=== PATIENT | male | born 1965 | race Caucasian/White ===

== ENCOUNTER 2019-04-29 14:52 | Inpatient (IN) | payer MEDICARE, MEDICAID ==
[~2019-04-29] VITALS: Ht 165.1 cm; Wt 69.1 kg
[2019-04-29 00:25] VITALS: BP 153/96
[~2019-04-29 14:52] MED LIST: PREDNISONE
[2019-04-29] MEDS ORDERED: SODIUM CHLORIDE 0.9% 1,000 ML IV ONE (16:12)
[2019-04-29 17:06] LABS: BASOPHILS % 0.7 % (0.0-2.0); EOSINOPHILS % 0.5 % (0.0-5.0); HEMATOCRIT. 24.6 % (42.0-52.0); HEMOGLOBIN. 8.1 g/dL (14.0-18.0); MEAN CORPUSCULAR HEMOGLOBIN 24.3 pg (28.0-32.0); MEAN CORPUSCULAR VOLUME 73.8 fL (80.0-94.0); MONOCYTES % 5.5 % (2.0-8.0); NEUTROPHILS % 69.3 % (40.0-76.0); PLATELET 265 x1000/uL (130-400); RED BLOOD CELL COUNT 3.33 mill/uL (4.7-6.1); RED CELL DISTRIBUTION WIDTH 22.8 % (11.6-14.6)
[2019-04-29 17:13] LABS: CHLORIDE 107 mEq/L (98-107)
[2019-04-29 17:24] LABS: PARTIAL THROMBOPLASTIN TIME 25.1 sec (23.4-31.0); PROTHROMBIN TIME 10.6 sec (9.6-11.0)
[2019-04-29] MEDS ORDERED: ASPIRIN 81MG TABLET PO ONE (17:45)
[2019-04-29 18:49] LABS: CLARITY URINE CLEAR (CLEAR); COLOR URINE YELLOW (YELLOW); KETONES URINE NEGATIVE (NEGATIVE); LEUKOCYTE ESTERASE URINE NEGATIVE (NEGATIVE); NITRITE URINE NEGATIVE (NEGATIVE); OCCULT BLOOD URINE NEGATIVE (NEGATIVE); PROTEIN URINE NEGATIVE (NEGATIVE); SPECIFIC GRAVITY URINE 1.008 (1.005-1.030); UROBILINOGEN URINE 0.2 E.U./dL (0.2-1.0)
[2019-04-29 19:04] LABS: PLATELET ESTIMATE NORMAL
[2019-04-29 20:54] VITALS: BP 117/83
[2019-04-29] MEDS ORDERED: ENCORAFENIB 450 MG PO SCH (23:15)
[2019-04-29] MEDS ORDERED: ENCO75CA PO (23:24)
[2019-04-29] MEDS ORDERED: BINI15TA PO (23:24)
[2019-04-29] MEDS ORDERED: FERR-71 MT (23:26)
[2019-04-30] VITALS (7 sets, daily range): BP systolic 92–130; BP diastolic 53–77
[2019-04-30] MEDS ORDERED: ONDANSETRON HCL 4MG/2ML INJ IV PRN (04:00)
[2019-04-30] MEDS: SODIUM CHLORIDE 0.9% 1,000 ML IV SCH ×2 (04:07→21:41)
[2019-04-30] MEDS: ACETAMINOPHEN 325MG TABLET PO PRN ×2 (04:28→08:37)
[2019-04-30] MEDS ORDERED: VANCOMYCIN 1500MG in DEXTROSE 5% WATER 250ML IV NR (08:00)
[2019-04-30] MEDS: ENCORAFENIB 75 MG PO SCH (08:36)
[2019-04-30] MEDS: BINIMETINIB 15 MG PO SCH ×2 (08:36→21:42)
[2019-04-30] MEDS: FERROUS SULFATE 325MG TABLET PO SCH ×2 (08:36→16:58)
[2019-04-30] MEDS: PIPERACILLIN/TAZOBACTAM 3.375 G in DEXT 5% WATER 100 ML IV SCH ×3 (08:37→21:41)
[2019-04-30] MEDS ORDERED: BINIMETINIB 45 MG PO SCH (09:00)
[2019-04-30] MEDS ORDERED: PIPERACILLIN/TAZOBACTAM 3.375GM/50ML PREMIX IV ONE (12:00)
[2019-04-30 16:55] LABS: TOTAL IRON BINDING CAPACITY 289 ug/dL (250-450)
[2019-04-30] MEDS: ACETAMINOPHEN 650MG/20.3ML UDC PO PRN (16:59)
[2019-04-30] MEDS: VANCOMYCIN 1250MG in DEXTROSE 5% WATER 250ML IV SCH (21:41)
[2019-05-01] VITALS (9 sets, daily range): BP systolic 93–116; BP diastolic 54–69
[2019-05-01] MEDS: PIPERACILLIN/TAZOBACTAM 3.375 G in DEXT 5% WATER 100 ML IV SCH ×3 (01:46→14:49)
[2019-05-01 06:35] LABS: CHLORIDE 107 mEq/L (98-107)
[2019-05-01 06:45] LABS: BASOPHILS % 0.4 % (0.0-2.0); EOSINOPHILS % 0.3 % (0.0-5.0); HEMATOCRIT. 22.4 % (42.0-52.0); HEMOGLOBIN. 7.4 g/dL (14.0-18.0); LYMPHOCYTES % 20.3 % (20.0-50.0); MEAN CORPUSCULAR HEMOGLOBIN 24.3 pg (28.0-32.0); MEAN CORPUSCULAR VOLUME 73.9 fL (80.0-94.0); MEAN PLATELET VOLUME 7.2 fl (7.4-10.4); MONOCYTES % 5.1 % (2.0-8.0); NEUTROPHILS % 73.9 % (40.0-76.0); PLATELET 241 x1000/uL (130-400); RED BLOOD CELL COUNT 3.03 mill/uL (4.7-6.1); RED CELL DISTRIBUTION WIDTH 22.5 % (11.6-14.6)
[2019-05-01 06:49] LABS: T4 FREE 0.77 ng/dL (0.76-1.46)
[2019-05-01] MEDS: SODIUM HYPOCHLORITE 0.125% 473ML SOLUTION TOP SCH ×2 (09:00→17:49)
[2019-05-01] MEDS: FERROUS SULFATE 325MG TABLET PO SCH ×2 (09:00→17:48)
[2019-05-01] MEDS: ENCORAFENIB 75 MG PO SCH ×2 (09:02→21:28)
[2019-05-01] MEDS: BINIMETINIB 15 MG PO SCH ×2 (09:02→21:28)
[2019-05-01] MEDS: SODIUM CHLORIDE 0.9% 1,000 ML IV SCH ×3 (10:00→13:14)
[2019-05-01] MEDS: VANCOMYCIN 1250MG in DEXTROSE 5% WATER 250ML IV SCH (10:50)
[2019-05-01] MEDS ORDERED: DOCUSATE SODIUM 100MG CAPSULE PO SCH (17:00)
[2019-05-01] MEDS: ACETAMINOPHEN 650MG/20.3ML UDC PO PRN (21:27)
[2019-05-05 06:07] LABS: METANEPHRINE 24 HR UR 18 ug/24 hr (45-290); METANEPHRINE UR 15 ug/L (Undefined); NORMETANEPHRINE 24 HR UR 102 ug/24 hr (82-500); NORMETANEPHRINE UR 85 ug/L (Undefined)
[2019-05-09 08:07] LABS: DOPAMINE URINE 446 ug/L (Undefined); DOPAMINE URINE 24 HR 1427 ug/24 hr (0-510); EPINEPHRINE URINE <1 ug/L (Undefined); EPINEPHRINE URINE 24 HR <3 ug/24 hr (0-20); NOREPINEPHRINE UR 24 HR 42 ug/24 hr (0-135); NOREPINEPHRINE URINE 13 ug/L (Undefined)
== END 2019-05-01 23:15 | disposition home or self-care (01) | DRG 871 ==
LOC: ER 18:22 → 6WST 18:50 → ENRESERV 19:50
PROVIDERS: ADMIT Internal Medicine; ATTEND Internal Medicine
DX: A41.9 Sepsis, unspecified organism (principal); E43 Unspecified severe protein-calorie malnutrition; C78.00 Secondary malignant neoplasm of unspecified lung; C78.7 Secondary malignant neoplasm of liver and intrahepatic bile duct; E78.5 Hyperlipidemia, unspecified; C43.9 Malignant melanoma of skin, unspecified; E27.9 Disorder of adrenal gland, unspecified; G90.8 Other disorders of autonomic nervous system; D50.9 Iron deficiency anemia, unspecified; E05.90 Thyrotoxicosis, unspecified without thyrotoxic crisis or storm; R35.1 Nocturia; I10 Essential (primary) hypertension; K59.00 Constipation, unspecified; Z83.3 Family history of diabetes mellitus; Z85.820 Personal history of malignant melanoma of skin; Z87.891 Personal history of nicotine dependence; Z92.3 Personal history of irradiation; Z98.42 Cataract extraction status, left eye; Z98.41 Cataract extraction status, right eye; Z68.25 Body mass index [BMI] 25.0-25.9, adult
CPT/HCPCS: 36415; 71045; 80048; 81003; 82024; 82384; 82533; 82728; 83540; 83550; 83880; 84134; 84439; 84443; 84484; 93005; 93306; 93880; 93970; 97162; 99285; C1893; J2405; J2543; J3370; J7030; J7060

== ENCOUNTER 2019-05-18 00:24 | Emergency (ER) | payer MEDICARE, MEDICAID ==
[~2019-05-18] VITALS: Ht 175.3 cm; Wt 79.0 kg
[~2019-05-18 00:24] MED LIST changes: +BINI15TA PO; +ENCO75CA PO; +FERR-71 MT; -PREDNISONE
[2019-05-18] MEDS ORDERED: PIPERACILLIN/TAZ 3.375G PREMIX 50 ML IV ONE (00:45)
[2019-05-18] MEDS ORDERED: SODIUM CHLORIDE 0.9% 1000ML BAG (SEPSIS BOLUS) IV ONE (00:45)
[2019-05-18 01:03] LABS: HEMATOCRIT. 28.9 % (42.0-52.0); HEMOGLOBIN. 9.3 g/dL (14.0-18.0); MEAN CORPUSCULAR HEMOGLOBIN 24.4 pg (28.0-32.0); MEAN CORPUSCULAR VOLUME 75.7 fL (80.0-94.0); MEAN PLATELET VOLUME 6.7 fl (7.4-10.4); PLATELET 263 x1000/uL (130-400); RED BLOOD CELL COUNT 3.82 mill/uL (4.7-6.1); RED CELL DISTRIBUTION WIDTH 26.6 % (11.6-14.6)
[2019-05-18 01:08] LABS: CHLORIDE 102 mEq/L (98-107)
[2019-05-18 01:10] LABS: INR 1.1; PROTHROMBIN TIME 11.2 sec (9.6-11.0)
[2019-05-18 01:38] LABS: PLATELET ESTIMATE NORMAL
[2019-05-18 07:17] VITALS: BP 97/59
== END 2019-05-18 07:19 | disposition home or self-care (01) ==
LOC: ER 00:53 → EDUNIT# 00:53 → ER 07:19 → CANBEDREQ 08:10
DX: R65.10 Systemic inflammatory response syndrome (SIRS) of non-infectious origin without acute organ dysfunction (principal); J06.9 Acute upper respiratory infection, unspecified; R00.0 Tachycardia, unspecified; R61 Generalized hyperhidrosis; Z79.899 Other long term (current) drug therapy; Z85.9 Personal history of malignant neoplasm, unspecified
CPT/HCPCS: 36415; 71045; 80053; 83605; 84145; 84484; 85025; 85610; 87040; 87804; 93005; 96365; 96366; 99291; J2543; J7030

== ENCOUNTER 2020-02-25 12:41 | Inpatient (IN) | payer MEDICARE, MEDICAID ==
[~2020-02-25] VITALS: Ht 172.7 cm; Wt 70.8 kg
[2020-02-25] MEDS ORDERED: MORPHINE SULFATE 4 MG/ML CPJ (NOT FOR IM USE) IV STA (13:00)
[2020-02-25] MEDS ORDERED: SODIUM CHLORIDE 0.9% 1,000 ML IV ONE (13:00)
[2020-02-25] MEDS ORDERED: ONDANSETRON HCL 4MG/2ML INJ IV STA (13:00)
[2020-02-25 13:48] LABS: BASOPHILS % 0.4 % (0.0-2.0); EOSINOPHILS % 0.4 % (0.0-5.0); HEMATOCRIT. 28.4 % (42.0-52.0); HEMOGLOBIN. 9.3 g/dL (14.0-18.0); LYMPHOCYTES % 12.4 % (20.0-50.0); MEAN CORPUSCULAR HEMOGLOBIN 28.4 pg (28.0-32.0); MEAN CORPUSCULAR VOLUME 86.5 fL (80.0-94.0); MEAN PLATELET VOLUME 6.4 fl (7.4-10.4); MONOCYTES % 11.6 % (2.0-8.0); NEUTROPHILS % 75.2 % (40.0-76.0); PLATELET 288 x1000/uL (130-400); RED BLOOD CELL COUNT 3.29 mill/uL (4.7-6.1); RED CELL DISTRIBUTION WIDTH 16.1 % (11.6-14.6)
[2020-02-25 13:52] LABS: CHLORIDE 101 mEq/L (98-107)
[2020-02-25 13:56] LABS: INR 1.1; PROTHROMBIN TIME 11.4 sec (9.6-11.0)
[2020-02-25] MEDS ORDERED: PIPERACILLIN SODIUM/TAZOBACTAM 4.5 G in DEXT 5% WATER 100 ML IV SCH (15:45)
[2020-02-25 15:59] LABS: CLARITY URINE CLEAR (CLEAR); COLOR URINE YELLOW (YELLOW); KETONES URINE NEGATIVE (NEGATIVE); LEUKOCYTE ESTERASE URINE NEGATIVE (NEGATIVE); NITRITE URINE NEGATIVE (NEGATIVE); OCCULT BLOOD URINE NEGATIVE (NEGATIVE); PROTEIN URINE TRACE (NEGATIVE)
[2020-02-26] VITALS (7 sets, daily range): BP systolic 100–127; BP diastolic 68–80
[2020-02-26] MEDS ORDERED: ONDANSETRON HCL 4MG/2ML INJ IV PRN (00:45)
[2020-02-26] MEDS: SODIUM CHLORIDE 0.9% 1,000 ML IV SCH ×2 (02:47→15:35)
[2020-02-26 05:57] LABS: BASOPHILS % 0.6 % (0.0-2.0); EOSINOPHILS % 0.5 % (0.0-5.0); HEMATOCRIT. 24.2 % (42.0-52.0); HEMOGLOBIN. 8.1 g/dL (14.0-18.0); LYMPHOCYTES % 10.9 % (20.0-50.0); MEAN CORPUSCULAR HEMOGLOBIN 28.2 pg (28.0-32.0); MEAN CORPUSCULAR VOLUME 84.5 fL (80.0-94.0); MEAN PLATELET VOLUME 6.5 fl (7.4-10.4); MONOCYTES % 14.4 % (2.0-8.0); NEUTROPHILS % 73.6 % (40.0-76.0); PLATELET 277 x1000/uL (130-400); RED BLOOD CELL COUNT 2.86 mill/uL (4.7-6.1); RED CELL DISTRIBUTION WIDTH 16.2 % (11.6-14.6)
[2020-02-26 06:17] LABS: CHLORIDE 105 mEq/L (98-107)
[2020-02-26] MEDS: OMEPRAZOLE 20MG CAPSULE EXTENDED RELEASE PO SCH (06:27)
[2020-02-26] MEDS: DOCUSATE SODIUM 250MG CAPSULE PO SCH (08:41)
[2020-02-26] MEDS: FERROUS SULFATE 325MG TABLET PO SCH ×2 (12:32→18:04)
[2020-02-26] MEDS: HYDROCODONE/ACETAMINOPHEN 10/325MG TABLET PO PRN (14:39)
[2020-02-26] MEDS: SODIUM HYPOCHLORITE 0.125% 473ML SOLUTION TOP SCH (15:35)
[2020-02-26] MEDS ORDERED: MORPHINE SULFATE 2 MG/ML CPJ (NOT FOR IM USE) IV NR (16:15)
[2020-02-26] MEDS: MORPHINE SULFATE 15MG TABLET SR PO SCH (18:05)
[2020-02-27] VITALS: BP 103/68
[2020-02-27] MEDS: SODIUM CHLORIDE 0.9% 1,000 ML IV SCH ×3 (01:23→17:44)
[2020-02-27 03:20] VITALS: BP 103/68
[2020-02-27] MEDS: LEVOTHYROXINE SODIUM 50MCG TABLET PO SCH (06:43)
[2020-02-27] MEDS: OMEPRAZOLE 20MG CAPSULE EXTENDED RELEASE PO SCH (06:44)
[2020-02-27 07:04] VITALS: BP 105/73
[2020-02-27 07:59] LABS: BASOPHILS % 0.5 % (0.0-2.0); EOSINOPHILS % 0.3 % (0.0-5.0); HEMATOCRIT. 23.7 % (42.0-52.0); HEMOGLOBIN. 7.9 g/dL (14.0-18.0); LYMPHOCYTES % 11.3 % (20.0-50.0); MEAN CORPUSCULAR HEMOGLOBIN 28.2 pg (28.0-32.0); MEAN CORPUSCULAR VOLUME 84.9 fL (80.0-94.0); MEAN PLATELET VOLUME 6.4 fl (7.4-10.4); MONOCYTES % 9.6 % (2.0-8.0); NEUTROPHILS % 78.3 % (40.0-76.0); PLATELET 273 x1000/uL (130-400); RED BLOOD CELL COUNT 2.79 mill/uL (4.7-6.1)
[2020-02-27] MEDS: DOCUSATE SODIUM 250MG CAPSULE PO SCH (09:20)
[2020-02-27] MEDS: MORPHINE SULFATE 15MG TABLET SR PO SCH (09:20)
[2020-02-27] MEDS: ZINC SULFATE 220 MG ( 50 ) CAPSULE PO SCH (09:20)
[2020-02-27] MEDS: FERROUS SULFATE 325MG TABLET PO SCH ×3 (09:21→17:43)
[2020-02-27] MEDS: ASCORBIC ACID 500 MG TABLET PO SCH (09:21)
[2020-02-27] MEDS: SODIUM HYPOCHLORITE 0.125% 473ML SOLUTION TOP SCH (09:21)
[2020-02-27 12:00] VITALS: BP 115/74
[2020-02-27] MEDS: HYDROCODONE/ACETAMINOPHEN 10/325MG TABLET PO PRN (14:08)
[2020-02-27] MEDS: BACLOFEN 10MG TABLET PO SCH ×2 (14:08→22:23)
[2020-02-27 16:00] VITALS: BP 103/68
[2020-02-27] MEDS: MORPHINE SULFATE 30MG TABLET SR PO SCH (17:44)
[2020-02-27 20:00] VITALS: BP 113/78
[2020-02-28] VITALS: BP 116/76
[2020-02-28 04:00] VITALS: BP 101/73
[2020-02-28] MEDS: SODIUM CHLORIDE 0.9% 1,000 ML IV SCH ×2 (04:51→14:02)
[2020-02-28] MEDS: BACLOFEN 10MG TABLET PO SCH ×3 (06:20→21:58)
[2020-02-28] MEDS: LEVOTHYROXINE SODIUM 50MCG TABLET PO SCH (06:20)
[2020-02-28] MEDS: OMEPRAZOLE 20MG CAPSULE EXTENDED RELEASE PO SCH (06:20)
[2020-02-28 07:25] LABS: BASOPHILS % 0.7 % (0.0-2.0); EOSINOPHILS % 0.3 % (0.0-5.0); HEMATOCRIT. 22.4 % (42.0-52.0); HEMOGLOBIN. 7.6 g/dL (14.0-18.0); LYMPHOCYTES % 10.7 % (20.0-50.0); MEAN CORPUSCULAR HEMOGLOBIN 28.6 pg (28.0-32.0); MEAN CORPUSCULAR VOLUME 83.6 fL (80.0-94.0); MEAN PLATELET VOLUME 6.4 fl (7.4-10.4); MONOCYTES % 9.4 % (2.0-8.0); NEUTROPHILS % 78.9 % (40.0-76.0); PLATELET 269 x1000/uL (130-400); RED BLOOD CELL COUNT 2.67 mill/uL (4.7-6.1); RED CELL DISTRIBUTION WIDTH 16.4 % (11.6-14.6)
[2020-02-28 08:00] VITALS: BP 114/63
[2020-02-28] MEDS: FERROUS SULFATE 325MG TABLET PO SCH ×3 (08:56→17:01)
[2020-02-28] MEDS: DOCUSATE SODIUM 250MG CAPSULE PO SCH (09:00)
[2020-02-28] MEDS: ZINC SULFATE 220 MG ( 50 ) CAPSULE PO SCH (09:00)
[2020-02-28] MEDS: ASCORBIC ACID 500 MG TABLET PO SCH (09:00)
[2020-02-28] MEDS: MORPHINE SULFATE 30MG TABLET SR PO SCH ×2 (09:01→17:02)
[2020-02-28] MEDS: SODIUM HYPOCHLORITE 0.125% 473ML SOLUTION TOP SCH (09:02)
[2020-02-28] MEDS ORDERED: VANCOMYCIN 1500MG in DEXTROSE 5% WATER 250ML IV NR (10:30)
[2020-02-28 12:00] VITALS: BP 102/73
[2020-02-28] MEDS ORDERED: LACTULOSE 20G/30ML UDC PO SCH (14:00)
[2020-02-28 16:00] VITALS: BP 100/66
[2020-02-28] MEDS: VANCOMYCIN 1 G PREMIX 200 ML IV SCH (20:48)
[2020-02-28 21:59] VITALS: BP 122/76
[2020-02-29] VITALS (7 sets, daily range): BP systolic 92–120; BP diastolic 63–77
[2020-02-29] MEDS: VANCOMYCIN 1 G PREMIX 200 ML IV SCH (06:24)
[2020-02-29] MEDS: BACLOFEN 10MG TABLET PO SCH ×3 (06:25→22:37)
[2020-02-29] MEDS: OMEPRAZOLE 20MG CAPSULE EXTENDED RELEASE PO SCH (06:25)
[2020-02-29] MEDS: LEVOTHYROXINE SODIUM 50MCG TABLET PO SCH (06:25)
[2020-02-29 06:32] LABS: BASOPHILS % 0.7 % (0.0-2.0); EOSINOPHILS % 0.4 % (0.0-5.0); HEMATOCRIT. 24.1 % (42.0-52.0); HEMOGLOBIN. 8.2 g/dL (14.0-18.0); LYMPHOCYTES % 12.2 % (20.0-50.0); MEAN CORPUSCULAR HEMOGLOBIN 28.6 pg (28.0-32.0); MEAN CORPUSCULAR VOLUME 84.2 fL (80.0-94.0); MEAN PLATELET VOLUME 6.4 fl (7.4-10.4); MONOCYTES % 10.5 % (2.0-8.0); NEUTROPHILS % 76.2 % (40.0-76.0); PLATELET 261 x1000/uL (130-400); RED BLOOD CELL COUNT 2.86 mill/uL (4.7-6.1); RED CELL DISTRIBUTION WIDTH 16.3 % (11.6-14.6)
[2020-02-29 06:42] LABS: CHLORIDE 102 mEq/L (98-107)
[2020-02-29] MEDS: FERROUS SULFATE 325MG TABLET PO SCH ×3 (08:58→16:35)
[2020-02-29] MEDS: DOCUSATE SODIUM 250MG CAPSULE PO SCH (08:58)
[2020-02-29] MEDS: ZINC SULFATE 220 MG ( 50 ) CAPSULE PO SCH (08:59)
[2020-02-29] MEDS: ASCORBIC ACID 500 MG TABLET PO SCH (08:59)
[2020-02-29] MEDS: MORPHINE SULFATE 30MG TABLET SR PO SCH ×2 (09:00→16:36)
[2020-02-29] MEDS: SODIUM HYPOCHLORITE 0.125% 473ML SOLUTION TOP SCH (09:00)
[2020-02-29] MEDS: SODIUM CHLORIDE 0.9% 1,000 ML IV SCH (11:31)
[2020-02-29] MEDS ORDERED: ASCO500T20 PO (12:59)
[2020-02-29] MEDS ORDERED: LEVO50TA8 PO (12:59)
[2020-02-29] MEDS ORDERED: FERR325T23 PO (12:59)
[2020-02-29] MEDS ORDERED: ZINC220C2 PO (12:59)
[2020-02-29] MEDS ORDERED: SULF1TAB48 MT (12:59)
[2020-02-29] MEDS ORDERED: BACL-141 PO (13:00)
[2020-02-29] MEDS ORDERED: MORP30TA54 MT (13:00)
[2020-02-29] MEDS ORDERED: DOCU250C14 MT (13:01)
[2020-02-29] MEDS ORDERED: ACETAMINOPHEN 325MG TABLET PO PRN (16:15)
[2020-02-29] MEDS: VANCOMYCIN 1250MG in DEXTROSE 5% WATER 250ML IV SCH (17:17)
[2020-03-01] VITALS: BP 130/80
[2020-03-01 04:00] VITALS: BP 96/68
[2020-03-01] MEDS: VANCOMYCIN 1250MG in DEXTROSE 5% WATER 250ML IV SCH (06:01)
[2020-03-01] MEDS: BACLOFEN 10MG TABLET PO SCH (06:02)
[2020-03-01] MEDS: SODIUM CHLORIDE 0.9% 1,000 ML IV SCH (06:14)
[2020-03-01] MEDS: OMEPRAZOLE 20MG CAPSULE EXTENDED RELEASE PO SCH (06:21)
[2020-03-01] MEDS: LEVOTHYROXINE SODIUM 50MCG TABLET PO SCH (06:21)
[2020-03-01] MEDS: ASCORBIC ACID 500 MG TABLET PO SCH (08:54)
[2020-03-01] MEDS: FERROUS SULFATE 325MG TABLET PO SCH (08:54)
[2020-03-01] MEDS: DOCUSATE SODIUM 250MG CAPSULE PO SCH (08:54)
[2020-03-01] MEDS: ZINC SULFATE 220 MG ( 50 ) CAPSULE PO SCH (08:54)
[2020-03-01] MEDS: MORPHINE SULFATE 30MG TABLET SR PO SCH (08:55)
[2020-03-01 12:00] VITALS: BP 110/70
== END 2020-03-01 13:24 | disposition home or self-care (01) | DRG 871 ==
LOC: ER 12:41 → 6EST 17:08 → ENRESERV 22:00
PROVIDERS: ADMIT Internal Medicine; ATTEND Internal Medicine
DX: A41.9 Sepsis, unspecified organism (principal); E43 Unspecified severe protein-calorie malnutrition; E87.1 Hypo-osmolality and hyponatremia; J98.11 Atelectasis; C79.2 Secondary malignant neoplasm of skin; E03.9 Hypothyroidism, unspecified; D64.9 Anemia, unspecified; Z92.21 Personal history of antineoplastic chemotherapy; Z68.23 Body mass index [BMI] 23.0-23.9, adult; Z98.42 Cataract extraction status, left eye; Z98.41 Cataract extraction status, right eye
CPT/HCPCS: 36415; 71045; 74176; 80048; 80053; 80202; 81003; 84443; 85025; 93005; 93970; 96374; 99285; J2270; J2405; J2543; J3370; J7030; J7060